=== PATIENT | female | born 1955 | race African-American/Black ===

== ENCOUNTER 2019-03-12 05:46 | Emergency (ER) | payer MEDICAID ==
[~2019-03-12] VITALS: Ht 165.1 cm; Wt 87.0 kg
[2019-03-12 05:55] VITALS: BP 161/64
== END 2019-03-12 06:29 | disposition left against medical advice (07) ==
LOC: ER 05:46
DX: Z53.21 Procedure and treatment not carried out due to patient leaving prior to being seen by health care provider (principal)